=== PATIENT | female | born 1950 | race African-American/Black ===

== ENCOUNTER 2019-12-20 05:17 | Outpatient (CLI) | payer MEDICARE, OTHER ==
[2019-12-20 17:19] LABS: SARS-CoV-2 MS2 Positive; SARS-CoV-2 N Gene Negative; SARS-CoV-2 S Gene Negative; SARS-CoV-2 by NAA Not Detected (NotDetected); SARS-CoV-2 orf1ab Negative
== END 2019-12-20 05:18 | disposition home or self-care (01) ==
LOC: LABBT 05:17
PROVIDERS: ATTEND Specialist
DX: Z01.818 Encounter for other preprocedural examination (principal); Z11.59 Encounter for screening for other viral diseases; K80.12 Calculus of gallbladder with acute and chronic cholecystitis without obstruction
CPT/HCPCS: 93005; U0003; 87635; 93010

== ENCOUNTER → 2019-12-25 | Day surgery (SDC) | payer MEDICARE ==
[2019-12-19 13:31] VITALS: BMI 31.0
--- NOTE | 2019-12-24 10:04 | HP ---
HISTORY OF PRESENT ILLNESS: Linda Haynes referred by Dr. Hernandez. The patient was seen at [facility]. Has had a CAT scan of the abdomen and pelvis. Ultrasound demonstrating gallstones, but without bile duct dilatation. Imaging performed on 11/28/2019. The patient has had laboratories at [facility] on 11/28/2019. White count 11, hemoglobin 13, and platelet count 246,000. Urinalysis normal. Glucose 144, BUN 8, creatinine 0.75, sodium 138, and potassium 3.6. Liver function tests are normal. ALLERGIES: NONE. HABITS: Tobacco, none. Alcohol, none. CURRENT MEDICATIONS: 1. Ibuprofen 800 mg 3 times a day as needed. 2. Triamcinolone p.r.n. 3. Omeprazole daily. 4. Risperidone 1 mg once a day as needed. 5. Astelin 137 mcg spray each nostril twice a day. 6. Proventil inhaler every 4 hours p.r.n. 7. Zoloft 100 mg a day. 8. Hydrochlorothiazide 25 mg a day. 9. Albuterol sulfate nebulizers as needed. 10. Spiriva once a day. 11. Singulair 10 mg a day. 12. Zofran as needed. PAST MEDICAL HISTORY: 1. Asthma. 2. Hypertension. 3. GERD. 4. Bipolar illness. 5. Obesity. PAST SURGICAL HISTORY: 1. Tubal ligation in 1972. 2. I and D of boils. FAMILY HISTORY: Noncontributory. REVIEW OF SYSTEMS: Noncontributory, as above. No cardiac history. SOCIAL HISTORY: The patient lives with daughter. The patient works at the [employer] and is anxious to get back to that. The patient is having episodic epigastric right upper quadrant pain. PHYSICAL EXAMINATION: VITAL SIGNS: Weight 161 pounds, height 5 feet temperature 97.7 degrees. HEAD, EARS, EYES, NOSE, AND THROAT: Unremarkable. LUNGS: Clear to auscultation. No wheezing. CARDIAC: Regular rate and rhythm. ABDOMEN: Soft, obese, and nontender except in the right upper quadrant, she has mild tenderness. EXTREMITIES: Without ankle edema. ASSESSMENT AND PLAN: 1. Asthma. This rarely bothers her. She takes her inhalers on a regular basis. She functions and works at [employer]. 2. Obesity. 3. Bipolar illness. 4. Symptomatic cholecystitis and cholelithiasis. Recommend laparoscopic video cholecystectomy. Risks of infection, bleeding, visceral and biliary injury were explained, open procedure. She consents. Job ID: [id number]
[~2019-12-25] MED LIST: Acetaminophen 500 MG TAB ONE; Albuterol Sulfate HFA (OR ONLY) ONE; Bupivacaine PF 0.5% 30 ML VIAL ONE; Dexamethasone 20 MG/5 ML VIAL ONE; Esmolol 100 MG/10 ML VIAL ONE; Fentanyl 100 MCG/2 ML VIAL ONE; Fentanyl 250 MCG/5 ML VIAL ONE; Glycopyrrolate 0.2 MG/ML 5 ML SYRINGE ONE; Ketorolac Tromethamine 30 MG/ML VIAL ONE; Levofloxacin 500 mg/D5W 100 ml Premix Bag ONE; Lidocaine 1% PF 5 ML VIAL ONE; Lidocaine 1% w/Epinephrine 1:100K 20 ML VIAL ONE; Lidocaine 2% Jelly 5 ML TUBE ONE; Ondansetron PF 4 MG/2 ML Vial ONE; PHENYLEPHRINE-NS 100 MCG/ML 10 ML SYRINGE ONE; PROPOFOL 200 MG/20 ML VIAL ONE; Rocuronium Bromide 10 MG/ML (10ML VIAL) ONE; Scopolamine 1.5 mg/72 hour Patch ONE
--- NOTE | 2019-12-25 08:43 | RAD ---
RADIOGRAPH CHEST 1 VIEW: DATE: 12/25/2019 HISTORY: 69-year-old female for preoperative clearance. FINDINGS: The thoracic aorta is tortuous and ectatic. There is no evidence of airspace density, pulmonary edema , or pneumothorax. The lateral costophrenic angles are not effaced. IMPRESSION: 1) No acute pulmonary findings. 2) ectasia of thoracic aorta.
--- NOTE | 2019-12-25 15:29 | OP ---
DATE OF PROCEDURE: 12/25/2019 PREOPERATIVE DIAGNOSES: 1. Acute cholecystitis. 2. Chronic cholecystitis. 3. Cholelithiasis. POSTOPERATIVE DIAGNOSES: 1. Acute cholecystitis. 2. Chronic cholecystitis. 3. Cholelithiasis. ANESTHESIA: General, local with 0.5% Marcaine 30 mL, mixed with 1% Xylocaine with epinephrine 20 mL, total volume used. FINDING: Severe acute cholecystitis with distended gallbladder and large cystic duct, requiring endo-loops. DESCRIPTION OF PROCEDURE: The patient was taken to the operating room where under general anesthesia, abdomen was prepared with ChloraPrep and draped in routine fashion. Local anesthetic mixture was infiltrated in the skin and subcutaneous tissue about each port site. Infraumbilical incision made. Pneumoperitoneum to 15 mmHg was obtained with a Veress needle, replacing with a 5 port, video laparoscope inserted. Right subxiphoid incision was made and 11 port placed. Right subcostal incision made at midclavicular entrance line and 5 ports placed. Gallbladder was acutely inflamed, distended, and very taut, difficult to grasp. Liver appeared to be normal. Fundus of the gallbladder was grasped and reflected cephalad with some difficulty. Omentum, stomach, and duodenum adherent to the gallbladder, carefully peeled down using blunt dissection these inflammatory adhesions. The infundibulum was markedly distended, dissected free. Cystic duct was carefully dissected free, it was enlarged, it was opened, and stones milked out of the cystic duct. Cystic duct stump was broad and it was completely divided and secured with 2 endo-loops. The gallbladder was severely inflamed to the liver bed and carefully dissected free, and near the fundus, the gallbladder was almost intrahepatic, requiring dissection through the liver to remove it. The gallbladder and multiple stone contents removed in the endobag, required enlargement of the subxiphoid incision. Once the gallbladder was removed, multiple stone spillage were removed and the gallbladder bed carefully inspected and cauterized thoroughly and Do used for hemostasis. Good hemostasis noted. The subxiphoid fascia was approximated with [id number] suture 0 Vicryl UR-2 needle. All skin incisions were approximated with interrupted subdermal 4-0 Monocryl and [place] glue applied. Job ID: [id number]
== END ==
LOC: SDC 07:52
PROVIDERS: ATTEND Specialist
PROC: 0FT44ZZ Resection of Gallbladder, Percutaneous Endoscopic Approach (ICD-10-PCS; principal; 2019-12-25)
DX: K80.12 Calculus of gallbladder with acute and chronic cholecystitis without obstruction (principal); I10 Essential (primary) hypertension; K21.9 Gastro-esophageal reflux disease without esophagitis; F31.9 Bipolar disorder, unspecified; E66.9 Obesity, unspecified; Z68.31 Body mass index [BMI] 31.0-31.9, adult; Z79.899 Other long term (current) drug therapy; Z88.0 Allergy status to penicillin; Z91.040 Latex allergy status; Z91.048 Other nonmedicinal substance allergy status
CPT/HCPCS: 71045; 88304; J1100; J1885; J1956; J2405; J2704; J3010; S0020